=== PATIENT | female | born 1930 | race Caucasian/White ===

== ENCOUNTER 2017-07-10 19:48 | Inpatient (IN) | payer MEDICARE ==
[~2017-07-10 19:48] MED LIST: APIX5TAB PO; CIPR-9 PO; CLON1TAB PO; DIGO0.25 PO; FERR325T20 PO; FURO20TA PO; FURO40TA PO; LOSA50TA PO; METO25TA3 PO; NON-325T2 PO; ROSU1TAB10 PO; SERT-129 PO; TRAM50 PO; TRAM50TA PO
[2017-07-10 23:00] VITALS: BP 118/80; PULSE 80; RESP 18; TEMP 98.4; O2SAT 95
[2017-07-11] VITALS (20 sets, daily range): BP systolic 87–122; BP diastolic 42–63; PULSE 54–96; RESP 16–20; TEMP 97.9–98.8; O2SAT 94–100
[2017-07-11] MEDS ORDERED: MAGNESIUM HYDROXIDE SUSP 30 ML CUP PO PRN (00:15)
[2017-07-11] MEDS ORDERED: RESP: ALBUTEROL 2.5 MG/IPRATROPIUM 0.5 MG NEB (PRN) NEB (00:15)
[2017-07-11] MEDS ORDERED: clonazePAM 1 MG TAB PO PRN (00:15)
[2017-07-11] MEDS ORDERED: NALOXONE HCL 0.4 MG/ML AMP IV PUSH PRN (00:15)
[2017-07-11] MEDS ORDERED: ACETAMINOPHEN 325 MG TAB PO PRN (00:15)
[2017-07-11] MEDS ORDERED: SODIUM CHLORIDE 0.9% FLUSH 10 ML FLUSH IV FLUSH PRN (00:15)
[2017-07-11] MEDS ORDERED: SENNOSIDES 8.6 MG TAB PO PRN (00:15)
[2017-07-11] MEDS ORDERED: traMADol HCL 50 MG TAB PO PRN (00:15)
[2017-07-11] MEDS ORDERED: CALCIUM CARBONATE 500 MG CHEWABLE TAB CHEW ONE (01:45)
--- NOTE | 2017-07-11 04:48 | HHI.HP ---
HPI Service [facility] Hospitalists Primary Care Physician Unknown Admission Diagnosis CHF . Diagnoses: (1) Atrial fibrillation (2) CHF (congestive heart failure) Chief Complaint: Shortness of breath Travel History International Travel<30 Days: No Contact w/Intl Traveler <30 Da: No History of Present Illness Mrs. 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 She was transferred to [facility] on 07/10/2017 for CHF exacerbation under the care of the hospitalist service. The patient is seen in her hospital room. She is pleasant but complaining of a dry throat. She reports she was getting short of breath and had a congested cough that got progressively worse over the last couple of days. She reports a history of congestive heart failure. She denies any associated chest pain, peripheral edema, nausea, vomiting, or diarrhea. She denies any recent fever or chills. Chest x-ray done at [facility] showed improved aeration of the lungs when compared to 09/08/2017. Residual infiltrate was noted in the medial left lower lung and probable small left pleural effusion. The patient's BNP increased from 2825 to 3040. Troponin I was 0.10 and then 0.11; possibly secondary to chronic renal insufficiency. Dr. Rea of cardiology service placed orders for the patient to be nothing by mouth after midnight with p.o. medications and daytime rounding physician for the hospitalist service placed orders for Lasix IV, DuoNeb nebulizer, and Solu-Medrol 125 mg IV. The patient reports improvement in symptoms. she is also being treated with ciprofloxacin p.o. for UTI - proteus mirabilis 07/04/16. She has completed 3.5 days of Cipro. Review of Systems Except as stated in HPI: all other systems reviewed are Neg Past Family Social History Past Medical History Recent Right MCA CVA s/p TPA and embolectomy Hypertension Cardiomyopathy Atrial fibrillation with RVR, new onset Mild dementia Anemia . Past Surgical History Cataract surgery Appendectomy Tonsillectomy . Reported Medications Reported Meds & Active Scripts Active Furosemide 20 Mg Tab 20 Mg PO BID@ Ultram (Tramadol HCl) 50 Mg Tab 50 Mg PO Q6H PRN Metoprolol Tartrate 25 Mg Tab 25 Mg PO Q12HR Ferosul (Ferrous Sulfate) 325 Mg (65 Mg Iron) Tablet 325 Mg PO BID Cipro (Ciprofloxacin HCl) 500 Mg Tab 500 Mg PO Q12HR 2 Days Reported Rosuvastatin (Rosuvastatin Calcium) 40 Mg Tab 40 Mg PO DAILY Eliquis (Apixaban) 5 Mg Tab 5 Mg PO BID Non-Aspirin (Acetaminophen) 325 Mg Tab 650 Mg PO Q4HR PRN Sertraline (Sertraline HCl) 100 Mg Tab 100 Mg PO DAILY Losartan (Losartan Potassium) 50 Mg Tab 50 Mg PO DAILY Clonazepam 1 Mg Tab 1 Mg PO TID PRN . Allergies: Coded Allergies: No Known Allergies (Verified Allergy, Unknown, 07/03/17) Family History Father, age 70, stroke Mother, age 93, dementia . Social History Tobacco: Denies Alcohol: Denies Illicit Drugs: Denies She is and lives with her who suffers from Alzheimer's . Physical Exam Vital Signs Vital Signs Date Time Temp Pulse Resp B/P (MAP) Pulse Ox O2 Delivery O2 Flow Rate FiO2 07/11/17 04:00 75 07/11/17 03:30 98.8 76 18 117/63 (81) 96 07/11/17 03:00 65 07/11/17 02:00 71 07/11/17 01:00 78 07/11/17 00:00 66 07/10/17 23:00 80 07/10/17 23:00 98.4 80 18 118/80 (93) 95 Physical Exam Constitutional: This is a well nourished elderly female patient, in no apparent distress. Integumentary: No rashes. Cool and dry. HEAD: Atraumatic. Normocephalic. EYES: No scleral icterus. No injection or drainage. ENT: Nose without bleeding, purulent drainage. NECK: Trachea midline. No JVD. CARDIOVASCULAR: Irregularly irregular with II/ systolic murmur auscultated throughout precordium. RESPIRATORY: Breath sounds equal bilaterally, diminished at bilateral bases. No wheezes, rales, or rhonchi. Congested cough. GASTROINTESTINAL: Abdomen soft, non-tender, nondistended. No guarding. MUSCULOSKELETAL: Extremities without clubbing, cyanosis, or edema. No calf tenderness. NEUROLOGICAL: Awake and alert. Motor and sensory grossly within normal limits. Normal speech. Appears to have some mild cognitive impairment in terms of recall. PSYCHIATRIC: No overt signs of anxiety or depression. . Caprini VTE Risk Assessment Caprini VTE Risk Assessment: Mod/High Risk (score >= 2) Caprini Risk Assessment Model Point Value = 1 Point Value = 2 Point Value = 3 Point Value = 5 Age 41-60 Minor surgery BMI > 25 kg/m2 Swollen legs Varicose veins or History of unexplained or recurrent spontaneous Oral contraceptives or hormone replacement Sepsis (< 1 month) Serious lung disease, including pneumonia (< 1 month) Abnormal pulmonary function Acute myocardial infarction Congestive heart failure (< 1 month) History of inflammatory bowel disease Medical patient at bed rest Age 61-74 Arthroscopic surgery Major open surgery (> 45 min) Laparoscopic surgery (> 45 min) Malignancy Confined to bed (> 72 hours) Immobilizing plaster cast Central venous access Age >= 75 History of VTE Family history of VTE Factor V Leiden Prothrombin [id number] Lupus anticoagulant Anticardiolipin antibodies Elevated serum homocysteine Heparin-induced thrombocytopenia Other congenital or acquired thrombophilia Stroke (< 1 month) Elective arthroplasty Hip, pelvis, or leg fracture Acute spinal cord injury (< 1 month) Prophylaxis Regimen Total Risk Factor Score Risk Level Prophylaxis Regimen 0-1 Low Early ambulation 2 Moderate Order ONE of the following: *Sequential Compression Device (SCD) *Heparin 5000 units SQ BID 3-4 Higher Order ONE of the following medications: *Heparin 5000 units SQ TID *Enoxaparin/Lovenox 40 mg SQ daily (WT < 150 kg, CrCl > 30 mL/min) *Enoxaparin/Lovenox 30 mg SQ daily (WT < 150 kg, CrCl > 10-29 mL/min) *Enoxaparin/Lovenox 30 mg SQ BID (WT < 150 kg, CrCl > 30 mL/min) AND/OR *Sequential Compression Device (SCD) 5 or more Highest Order ONE of the following medications: *Heparin 5000 units SQ TID (Preferred with Epidurals) *Enoxaparin/Lovenox 40 mg SQ daily (WT < 150 kg, CrCl > 30 mL/min) *Enoxaparin/Lovenox 30 mg SQ daily (WT < 150 kg, CrCl > 10-29 mL/min) *Enoxaparin/Lovenox 30 mg SQ BID (WT < 150 kg, CrCl > 30 mL/min) AND *Sequential Compression Device (SCD) Assessment and Plan Problem List: (1) CHF (congestive heart failure) ICD Code: I50.9 - Heart failure, unspecified (2) Atrial fibrillation ICD Code: I48.91 - Unspecified atrial fibrillation Status: Acute Assessment and Plan Mrs. 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 She was transferred to [facility] on 07/10/2017 for CHF exacerbation under the care of the hospitalist service. CHF - Lasix 20 mg IV push twice a day - Consult cardiology - Echocardiogram 07/07/2017 showed hyperdynamic left ventricular systolic function with estimated EF of 65-70%; normal left ventricular size; severe concentric left ventricular hypertrophy; left atrium severely dilated; aortic valve sclerosis was present, mild aortic valve stenosis noted, aortic valve mean gradient suggestive of hypertrophic obstructive cardiomyopathy - NPO with p.o. meds per Dr. Rea - Monitor intake and output Atrial fibrillation - Continuous cardiac telemetry to monitor arrhythmia and heart rate - Continue Eliquis - Continue metoprolol - Continue digoxin UTI - culture + for Proteus mirabilis - Cipro discontinued - Vanc/Zosyn IV started - will cover both pneumonia and UTI Left lower lobe pneumonia - Vanc/Zosyn IV - Duonebulizers PRN - supplemental oxygen to maintain oxygen saturation > 92% DVT prophylaxis - Eliquis 5 mg BID p.o. . Discussed Condition With Patient and Dr. Shannon . Physician Certification 2 Midnight Certification Type: Admission for Inpatient Services Order for Inpatient Services The services are ordered in accordance with Medicare regulations or non- Medicare payer requirements, as applicable. In the case of services not specified as inpatient-only, they are appropriately provided as inpatient services in accordance with the 2-midnight benchmark. Estimated LOS (days): 3 days is the estimated time the patient will need to remain in the hospital, assuming treatment plan goals are met and no additional complications. Post-Hospital Plan: Not yet determined Taylor Mcintyre Jul 11, 2017 04:48
[2017-07-11] MEDS ORDERED: Vancomycin Consult Pharmacy 1 EA OTHER SCH (05:45)
[2017-07-11] MEDS ORDERED: CIPROFLOXACIN 500 MG TAB PO SCH ×2 (06:00→09:00)
[2017-07-11] MEDS: PIPERACIL-TAZO 4.5 GM PREMIX 100 ML IV SCH ×4 (06:14→23:49)
[2017-07-11 07:00] LABS: ALBUMIN 3.3 GM/DL (3.4-5.0); AST (GOT) 17 U/L (15-37); BICARBONATE 32.7 MEQ/L (21.0-32.0); BLOOD UREA NITROGEN 33 MG/DL (7-18); CALCIUM 9.1 MG/DL (8.5-10.1); CHLORIDE 101 MEQ/L (98-107); CREATININE 1.02 MG/DL (0.50-1.00); GLOMERULAR FILTRATION RATE 52 ML/MIN (>89); GLUCOSE,RANDOM 146 MG/DL (74-106); SODIUM (NA) 141 MEQ/L (136-145)
[2017-07-11 07:14] LABS: ALKALINE PHOSPHATASE 86 U/L (45-117); ALT (GPT) 17 U/L (10-53); DIGOXIN 1.3 NG/ML (0.8-2.0); TOTAL PROTEIN 6.6 GM/DL (6.4-8.2)
--- NOTE | 2017-07-11 08:02 | PD.CARD.PN ---
Subjective Subjective Remarks Vague historian. Substernal CP last night, may have lasted 10-20 minutes, "heartburn" sensation, no dyspnea/nausea/diaphoresis. No CP since. No dizziness, palpitations. Objective Medications Item Value Date Time Metoprolol 25 mg 07/11/17 0900 Tartrate Q12HR/PO (Lopressor) Furosemide 20 mg 07/11/17 0900 (Lasix Inj) BID@/IV PUSH Potassium Chloride 10 meq 07/11/1700 (KCl) Q12HR/PO Digoxin 0.25 mg 07/11/1700 (Lanoxin) DAILY/PO Losartan Potassium 50 mg 07/11/17899 (Cozaar) DAILY/PO Atorvastatin 80 mg 07/11/1700 Calcium DAILY/PO (Lipitor) Apixaban 5 mg 07/11/1700 (Eliquis) BID/PO Current Medications Medications (Trade) Dose Ordered Sig/Melany Route Start Time Stop Time Status Last Admin (Lopressor) 25 mg Q12HR PO 07/11/17 09:00 (Duoneb Neb) 1 ampule Q4HR NEB PRN NEB 07/11/17 00:15 (Lasix Inj) 20 mg BID@ IV PUSH 07/11/17 09:00 (KCl) 10 meq Q12HR PO 07/11/17 09:00 (Ferrous Sulfate) 325 mg BID PO 07/11/17 09:00 (Lanoxin) 0.25 mg DAILY PO 07/11/17 09:00 (Cozaar) 50 mg DAILY PO 07/11/17 09:00 (Zoloft) 100 mg DAILY PO 07/11/17 09:00 (Lipitor) 80 mg DAILY PO 07/11/17 09:00 (Ramona-Colace) 1 tab BID PO 07/11/17 09:00 (Eliquis) 5 mg BID PO 07/11/17 09:00 (KlonoPIN) 1 mg Q8HR PRN PO 07/11/17 00:15 (Ultram) 50 mg Q6H PRN PO 07/11/17 00:15 (Tylenol) 650 mg Q4H PRN PO 07/11/17 00:15 (Senokot) 17.2 mg Q12HR PRN PO 07/11/17 00:15 (Milk Of Magnesia Liq) 30 ml DAILY PRN PO 07/11/17 00:15 (NS Flush) 2 ml UNSCH PRN IV FLUSH 07/11/17 00:15 (NS Flush) 2 ml BID IV FLUSH 07/11/17 09:00 (Narcan Inj) 0.4 mg UNSCH PRN IV PUSH 07/11/17 00:15 Pharmacy Profile Note 0 ml @ 0 mls/hr UNSCH OTHER 07/11/17 05:45 Piperacillin Sod/ Tazobactam Sod 100 ml @ 200 mls/hr Q6H IV 07/11/17 06:00 07/11/17 06:14 Vital Signs / I&O Vital Signs Date Time Temp Pulse Resp B/P (MAP) Pulse Ox O2 Delivery O2 Flow Rate FiO2 07/11/17 06:00 74 07/11/17 05:00 70 07/11/17 04:00 75 07/11/17 03:30 98.8 76 18 117/63 (81) 96 07/11/17 03:00 65 07/11/17 02:00 71 07/11/17 01:00 78 07/11/17 00:00 66 07/10/17 23:00 80 07/10/17 23:00 98.4 80 18 118/80 (93) 95 I/O 07/10/17 07/10/17 07/10/17 07/11/17 07/11/17 07/11/17 07:00 15:00 23:00 07:00 15:00 23:00 Intake Total 240 ml Output Total 550 ml Balance -310 ml Intake Oral 240 ml Output Urine Total 550 ml # Bowel Movements 0 Physical Exam GENERAL: Well developed, well nourished. No acute distress. HEENT: Jugular venous pressure 8 cm water. CHEST: Diminished breath sounds bases. CARDIAC: Irregular rate and rhythm without S3, S4. II-III/ diffuse systolic murmur, no change with Valsalva. ABDOMEN: Soft, nontender, no hepatosplenomegaly. Bowel sounds present. EXTREMITIES: No clubbing, cyanosis, or edema. Laboratory Laboratory Tests Test 07/11/17 05:20 Blood Urea Nitrogen 33 MG/DL Creatinine 1.02 MG/DL Random Glucose 146 MG/DL Total Protein 6.6 GM/DL Albumin 3.3 GM/DL Calcium Level 9.1 MG/DL Alkaline Phosphatase 86 U/L Aspartate Amino Transf (AST/SGOT) 17 U/L Alanine Aminotransferase (ALT/SGPT) 17 U/L Total Bilirubin 1.0 MG/DL Sodium Level 141 MEQ/L Potassium Level 3.3 MEQ/L Chloride Level 101 MEQ/L Carbon Dioxide Level 32.7 MEQ/L Anion Gap 7 MEQ/L Estimat Glomerular Filtration Rate 52 ML/MIN Digoxin Level 1.3 NG/ML Assessment and Plan Problem List: (1) Chest pain ICD Codes: R07.9 - Chest pain, unspecified Status: Acute Plan: Atypical chest discomfort last night, EKG changed from prior. No further chest discomfort. Rec Lexiscan nuclear stress test this morning. (2) CHF (congestive heart failure) ICD Codes: I50.9 - Heart failure, unspecified Status: Acute Plan: Overall improved with diuresis. Suspect CHF on basis of diastolic dysfunction with superimposed atrial fibrillation and loss of atrial contribution to LV filling. Rec continue beta lauren, IV Lasix diuresis. (3) Hypertrophic obstructive cardiomyopathy ICD Codes: I42.1 - Obstructive hypertrophic cardiomyopathy Status: Chronic Plan: Echo shows diffuse hypertrophy, most prominent in basal septum with mild obstruction to left ventricular outflow. Rec continue beta lauren therapy. (4) Paroxysmal atrial fibrillation ICD Codes: I48.0 - Paroxysmal atrial fibrillation Status: Acute Plan: Remains in atrial fib, controlled HR's. Continue current regimen, including apixaban. (5) Hypertension, essential ICD Codes: I10 - Essential (primary) hypertension Status: Chronic Plan: Stable. Normotensive. Code Status full code Discussed Condition With patient Problem Qualifiers (1) Chest pain: Qualified Codes: R07.9 - Chest pain, unspecified (2) CHF (congestive heart failure): Qualified Codes: I50.31 - Acute diastolic (congestive) heart failure Isaiah Rea MD Jul 11, 2017 08:02
[2017-07-11] MEDS: APIXABAN 5 MG TABLET PO SCH ×2 (08:39→21:45)
[2017-07-11] MEDS: LOSARTAN 50 MG TAB PO SCH (08:39)
[2017-07-11] MEDS: ATORVASTATIN 80 MG TAB PO SCH (08:39)
[2017-07-11] MEDS: FERROUS SULFATE 325 MG (65 MG ELEMENTAL IRON) TAB PO SCH ×2 (08:39→21:45)
[2017-07-11] MEDS: DOCUSATE SODIUM 50 MG/SENNA 8.6 MG TAB PO SCH ×2 (08:39→21:45)
[2017-07-11] MEDS: SERTRALINE HCL 100 MG TAB PO SCH (08:39)
[2017-07-11] MEDS: METOPROLOL TARTRATE 25 MG TAB PO SCH ×2 (08:39→21:00)
[2017-07-11] MEDS: POTASSIUM CHLORIDE 10 MEQ CONTROLLED RELEASE TAB PO SCH ×2 (08:39→21:45)
[2017-07-11] MEDS: SODIUM CHLORIDE 0.9% FLUSH 10 ML FLUSH IV FLUSH SCH ×2 (08:40→21:45)
[2017-07-11] MEDS: FUROSEMIDE 20 MG/2 ML VIAL IV PUSH SCH ×2 (08:40→16:56)
[2017-07-11] MEDS ORDERED: DIGOXIN 0.25 MG TAB PO SCH (09:00)
[2017-07-11] MEDS ORDERED: VANCOMYCIN INJ 1,250 MG in SODIUM CHLOR 0.9% 250 ML INJ 250 ML IV SCH (10:00)
[2017-07-11] MEDS ORDERED: REGADENOSON INJ 0.4 MG/5 ML SYR ONE (12:37)
--- NOTE | 2017-07-11 13:41 | RADRPT ---
EXAM DATE/TIME: 07/11/2017 11:50 [place] COMPARISON: No previous studies available for comparison. INDICATIONS : Substernal chest pain. Chest pain on Digoxin. Atrial fibrillation. DOSE: 25.9 mCi Tc99m Myoview at stress. 8.1 mCi Tc99m Myoview at rest. 0.4 mg Lexiscan STRESS SYMPTOMS: None. EJECTION FRACTION: 69% MEDICAL HISTORY : Congestive hearrt failure. Hypertension. SURGICAL HISTORY : Tubal ligation. ENCOUNTER: Initial ACUITY: 3 days PAIN SCALE: 4/10 LOCATION: Substernal chest TECHNIQUE: The patient underwent pharmacologic stress with infusion of prescribed dose. Continuous ECG tracing was monitored during stress. Gated SPECT imaging was performed after stress and conventional SPECT i maging was performed at rest. The examination was performed on a SPECT/CT scanner, both attenuation and non-corrected datasets were reviewed. FINDINGS: DISTRIBUTION: The maximum perfused segment at stress is in the septal wall. PERFUSION STUDY: The pattern of perfusion at stress is within normal limits. GATED STUDY: There is intact wall motion and thickening without hypokinetic or dyskinetic segments. CONCLUSION: Unremarkable myocardial perfusion examination. RISK CATEGORY: Low Seth Liao MD on July 11, 2017 at 13:38 Board Certified Radiologist. This report was verified electronically.
--- NOTE | 2017-07-11 14:17 | HHI.PR ---
Subjective Remarks Follow-up for shortness of breathing Patient stated that she feels short of breath. She denies any worsening of symptoms. Positive for nonproductive cough. She has no other complaints. She did have questions on when she can be discharged. Objective Vitals Vital Signs Date Time Temp Pulse Resp B/P (MAP) Pulse Ox O2 Delivery O2 Flow Rate FiO2 07/11/17 11:15 20 07/11/17 08:00 98.6 96 16 122/60 (80) 94 07/11/17 06:00 74 07/11/17 05:00 70 07/11/17 04:00 75 07/11/17 03:30 98.8 76 18 117/63 (81) 96 07/11/17 03:00 65 07/11/17 02:00 71 07/11/17 01:00 78 07/11/17 00:00 66 07/10/17 23:00 80 07/10/17 23:00 98.4 80 18 118/80 (93) 95 I/O 07/10/17 07/10/17 07/10/17 07/11/17 07/11/17 07/11/17 07:00 15:00 23:00 07:00 15:00 23:00 Intake Total 240 ml Output Total 550 ml Balance -310 ml Intake Oral 240 ml Output Urine Total 550 ml # Bowel Movements 0 Result Diagram: 07/11/17 0520 Objective Remarks GENERAL: in NAD CARDIOVASCULAR: Regular rate and rhythm without murmurs, gallops, or rubs. RESPIRATORY: Mild bibasilar crackles. No accessory muscle use. GASTROINTESTINAL: Abdomen soft, non-tender, nondistended. MUSCULOSKELETAL: No cyanosis, or edema. BACK: Nontender without obvious deformity. No CVA tenderness. Medications and IVs Current Medications Metoprolol Tartrate (Lopressor) 25 mg Q12HR PO Last administered on 07/11/17at 08 :39; Start 07/11/17 at 09:00 Albuterol/ Ipratropium (Duoneb Neb) 1 ampule Q4HR NEB PRN NEB SOB/WHEEZING; Start 07/11/17 at 00:15 Furosemide (Lasix Inj) 20 mg BID@,18 IV PUSH Last administered on 07/11/17at 08 :40; Start 07/11/17 at 09:00 Potassium Chloride (KCl) 10 meq Q12HR PO Last administered on 07/11/17 08:39; Start 07/11/17 at 09:00 Ferrous Sulfate (Ferrous Sulfate) 325 mg BID PO Last administered on 07/11/17 08:39; Start 07/11/17 at 09:00 Ciprofloxacin (Cipro) 500 mg Q12HR PO ; Start 07/11/17 at 09:00; Stop 07/11/17 at 09:00; Status DC Digoxin (Lanoxin) 0.25 mg DAILY PO Last administered on 07/11/17 08:39; Start 07/11/17 at 09:00 Losartan Potassium (Cozaar) 50 mg DAILY PO Last administered on 07/11/17 08:39 ; Start 07/11/17 at 09:00 Sertraline HCl (Zoloft) 100 mg DAILY PO Last administered on 07/11/17 08:39; Start 07/11/17 at 09:00 Atorvastatin Calcium (Lipitor) 80 mg DAILY PO Last administered on 07/11/17 08: 39; Start 07/11/17 at 09:00 Senna/Docusate Sodium (Ramona-Colace) 1 tab BID PO Last administered on 07/11/17 08:39; Start 07/11/17 at 09:00 Apixaban (Eliquis) 5 mg BID PO Last administered on 07/11/17 08:39; Start at 09:00 Clonazepam (KlonoPIN) 1 mg Q8HR PRN PO MODERATE TO SEVERE ANXIETY; Start at 00:15 Tramadol HCl (Ultram) 50 mg Q6H PRN PO pain > 5; Start 07/11/17 at 00:15 Acetaminophen (Tylenol) 650 mg Q4H PRN PO fever > 100.4/pain 1 - 5 Last administered on 07/11/17at 10:03; Start 07/11/17 at 00:15 Sennosides (Senokot) 17.2 mg Q12HR PRN PO moderate constipation; Start 07/11/17 at 00:15 Magnesium Hydroxide (Milk Of Magnesia Liq) 30 ml DAILY PRN PO mild constipation ; Start 07/11/17 at 00:15 Sodium Chloride (NS Flush) 2 ml UNSCH PRN IV FLUSH FLUSH AFTER USING IV ACCESS ; Start 07/11/17 at 00:15 Sodium Chloride (NS Flush) 2 ml BID IV FLUSH Last administered on 07/11/17at 08: 40; Start 07/11/17 at 09:00 Naloxone HCl (Narcan Inj) 0.4 mg UNSCH PRN IV PUSH SEE LABEL COMMENTS; Start at 00:15 Ciprofloxacin (Cipro) 500 mg Q12H PO ; Start 07/11/17 at 06:00; Stop 07/11/17 at 06:00; Status DC Calcium Carbonate (Tums Chew) 500 mg ONCE ONCE CHEW Last administered on at 01:45; Start 07/11/17 at 01:45; Stop 07/11/17 at 01:47; Status DC Pharmacy Profile Note 0 ml @ 0 mls/hr UNSCH OTHER ; Start 07/11/17 at 05:45 Piperacillin Sod/ Tazobactam Sod 100 ml @ 200 mls/hr Q6H IV Last administered on 07/11/17at 12:00; Start 07/11/17 at 06:00 Vancomycin HCl 1250 mg/Sodium Chloride 262.5 ml @ 250 mls/hr Q24H IV Last administered on 07/11/17at 10:04; Start 07/11/17 at 10:00; Stop 07/11/17 at 10:46; Status DC Vancomycin HCl 1000 mg/Sodium Chloride 250 ml @ 250 mls/hr Q24H IV ; Start 07/12 at 10:00 Miscellaneous Information SPECIFIC LAB TO BE DRAWN:VANCOMYCIN TROUGH DATE TO... ONCE ONCE .XX ; Start 07/14/17 at 09:45; Stop 07/14/17 at 09:46 Regadenoson (Lexiscan Inj) 0.4 mg STK-MED ONCE .ROUTE Last administered on at 12:37; Start 07/11/17 at 12:37; Stop 07/11/17 at 12:38; Status DC A/P Problem List: (1) CHF (congestive heart failure) ICD Code: I50.9 - Heart failure, unspecified Status: Acute (2) Atrial fibrillation ICD Code: I48.91 - Unspecified atrial fibrillation Status: Acute Assessment and Plan Mrs. 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 for inpatient rehabilitation to recover functional abilities on 07/04/2017. She was transferred to [facility] on 07/10/2017 for CHF exacerbation under the care of the hospitalist service. 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 States to continue with IV Lasix. - Echocardiogram 07/07/2017 showed hyperdynamic left ventricular systolic function with estimated EF of 65-70%; normal left ventricular size; severe concentric left ventricular hypertrophy; left atrium severely dilated; aortic valve sclerosis was present, mild aortic valve stenosis noted, aortic valve mean gradient suggestive of hypertrophic obstructive cardiomyopathy -Nuclear stress test unremarkable. Atrial fibrillation -Continue with metoprolol, Eliquis and digoxin. UTI - culture + for Proteus mirabilis - Cipro discontinued - Vanc/Zosyn IV started - will cover both pneumonia and UTI Left lower lobe pneumonia - Vanc/Zosyn IV - Duonebulizers PRN - supplemental oxygen to maintain oxygen saturation > 92% -If symptoms improve tomorrow can consider switching to oral medication. -Patient has a dry cough so unable to get any sputum cultures. DVT prophylaxis - Eliquis 5 mg BID p.o. Discharge Planning Awaiting clinical improvement before discharge. Patient continues to be on IV antibiotics and IV Lasix. Problem Qualifiers (1) CHF (congestive heart failure): Qualified Codes: I50.31 - Acute diastolic (congestive) heart failure Randa Haynes MD Jul 11, 2017 14:17
[2017-07-11] MEDS ORDERED: SODIUM CHLOR 0.9% 250 ML INJ 250 ML IV ONE (21:30)
[2017-07-12] VITALS (30 sets, daily range): BP systolic 96–145; BP diastolic 43–59; PULSE 51–71; RESP 16; TEMP 97.5–98.3; O2SAT 93–100
[2017-07-12] MEDS: PIPERACIL-TAZO 4.5 GM PREMIX 100 ML IV SCH ×2 (05:42→12:39)
[2017-07-12 06:33] LABS: HEMATOCRIT 31.2 % (35.0-46.0); MEAN CELL VOLUME 85.5 FL (80.0-100.0); MEAN CORPUSCULAR HEMOGLOBIN 27.5 PG (27.0-34.0); MEAN CORPUSCULAR HGB CONC 32.2 % (32.0-36.0); MEAN PLATELET VOLUME 8.2 FL (7.0-11.0); PLATELET COUNT 261 TH/MM3 (150-450); RED BLOOD COUNT 3.65 MIL/MM3 (4.00-5.30); RED CELL DISTRIBUTION WIDTH 17.4 % (11.6-17.2); WHITE BLOOD COUNT 11.7 TH/MM3 (4.0-11.0)
[2017-07-12 06:53] LABS: BICARBONATE 32.8 MEQ/L (21.0-32.0); CALCIUM 8.5 MG/DL (8.5-10.1); CREATININE 1.31 MG/DL (0.50-1.00)
--- NOTE | 2017-07-12 08:29 | PD.CARD.PN ---
Subjective Subjective Remarks Mild heartburn this morning. Mildly dyspneic at rest. No PND. No dizziness, palpitations. Objective Medications Item Value Date Time Metoprolol 25 mg 07/11/17 0900 Tartrate Q12HR/PO (Lopressor) Furosemide 20 mg 07/11/17 0900 (Lasix Inj) BID@/IV PUSH Potassium Chloride 10 meq 07/11/17 0900 (KCl) Q12HR/PO Digoxin 0.25 mg 07/11/17899 (Lanoxin) DAILY/PO Losartan Potassium 50 mg 07/11/17 0900 (Cozaar) DAILY/PO Atorvastatin 80 mg 07/11/17899 Calcium DAILY/PO (Lipitor) Apixaban 5 mg 07/11/17899 (Eliquis) BID/PO Current Medications Medications (Trade) Dose Ordered Sig/Melany Route Start Time Stop Time Status Last Admin (Lopressor) 25 mg Q12HR PO 07/11/17 09:00 07/11/17 08:39 (Duoneb Neb) 1 ampule Q4HR NEB PRN NEB 07/11/17 00:15 (Lasix Inj) 20 mg BID@ IV PUSH 07/11/17 09:00 07/11/17 08:40 (KCl) 10 meq Q12HR PO 07/11/17 09:00 07/11/17 21:45 (Ferrous Sulfate) 325 mg BID PO 07/11/17 09:00 07/11/17 21:45 (Lanoxin) 0.25 mg DAILY PO 07/11/17 09:00 07/11/17 08:39 (Cozaar) 50 mg DAILY PO 07/11/17 09:00 07/11/17 08:39 (Zoloft) 100 mg DAILY PO 07/11/17 09:00 07/11/17 08:39 (Lipitor) 80 mg DAILY PO 07/11/17 09:00 07/11/17 08:39 (Ramona-Colace) 1 tab BID PO 07/11/17 09:00 07/11/17 21:45 (Eliquis) 5 mg BID PO 07/11/17 09:00 07/11/17 21:45 (KlonoPIN) 1 mg Q8HR PRN PO 07/11/17 00:15 (Ultram) 50 mg Q6H PRN PO 07/11/17 00:15 (Tylenol) 650 mg Q4H PRN PO 07/11/17 00:15 07/11/17 10:03 (Senokot) 17.2 mg Q12HR PRN PO 07/11/17 00:15 (Milk Of Magnesia Liq) 30 ml DAILY PRN PO 07/11/17 00:15 (NS Flush) 2 ml UNSCH PRN IV FLUSH 07/11/17 00:15 (NS Flush) 2 ml BID IV FLUSH 07/11/17 09:00 07/11/17 21:45 (Narcan Inj) 0.4 mg UNSCH PRN IV PUSH 07/11/17 00:15 Pharmacy Profile Note 0 ml @ 0 mls/hr UNSCH OTHER 07/11/17 05:45 Piperacillin Sod/ Tazobactam Sod 100 ml @ 200 mls/hr Q6H IV 07/11/17 06:00 07/12/17 05:42 Vancomycin HCl 1000 mg/Sodium Chloride 250 ml @ 250 mls/hr Q24H IV 07/12/17 10:00 Miscellaneous Information SPECIFIC LAB TO BE DRAWN:VANCOMYCIN TROUGH DATE TO... ONCE ONCE .XX 07/14/17 09:45 07/14/17 09:46 Vital Signs / I&O Vital Signs Date Time Temp Pulse Resp B/P (MAP) Pulse Ox O2 Delivery O2 Flow Rate FiO2 07/12/17 07:45 97.5 68 16 110/50 (70) 98 07/12/17 06:00 57 07/12/17 05:00 65 07/12/17 04:00 62 07/12/17 03:30 98.0 59 16 108/47 (67) 99 07/12/17 03:00 52 07/12/17 02:00 57 07/12/17 01:00 63 07/12/17 00:00 61 07/12/17 00:00 97.7 59 16 120/50 (73) 98 07/11/17 23:00 58 07/11/17 22:30 56 116/62 (80) 07/11/17 22:00 56 07/11/17 21:00 60 07/11/17 20:00 97.9 72 16 95/47 (63) 98 87/42 (57) 07/11/17 20:00 60 07/11/17 19:00 62 07/11/17 18:00 54 07/11/17 17:00 63 07/11/17 16:00 62 07/11/17 16:00 98.8 62 20 89/60 (70) 100 07/11/17 12:00 60 07/11/17 11:15 20 I/O 07/11/17 07/11/17 07/11/17 07/12/17 07/12/17 07/12/17 07:00 15:00 23:00 07:00 15:00 23:00 Intake Total 240 ml 490 ml 460 ml Output Total 550 ml 450 ml 350 ml Balance -310 ml 40 ml 110 ml Intake Oral 240 ml 240 ml 360 ml IV Total 250 ml 100 ml Output Urine Total 550 ml 450 ml 350 ml # Bowel Movements 0 1 Physical Exam GENERAL: Well developed, well nourished. No acute distress. HEENT: Jugular venous pressure 8-9 cm water. CHEST: Diminished breath sounds bases. Few basilar rales. CARDIAC: Irregular rate and rhythm without S3, S4. II-III/ diffuse systolic murmur. ABDOMEN: Soft, nontender, no hepatosplenomegaly. Bowel sounds present. EXTREMITIES: No clubbing, cyanosis, or edema. Laboratory Laboratory Tests Test 07/12/17 05:14 White Blood Count 11.7 TH/MM3 Red Blood Count 3.65 MIL/MM3 Hemoglobin 10.0 GM/DL Hematocrit 31.2 % Mean Corpuscular Volume 85.5 FL Mean Corpuscular Hemoglobin 27.5 PG Mean Corpuscular Hemoglobin Concent 32.2 % Red Cell Distribution Width 17.4 % Platelet Count 261 TH/MM3 Mean Platelet Volume 8.2 FL Blood Urea Nitrogen 37 MG/DL Creatinine 1.31 MG/DL Random Glucose 107 MG/DL Calcium Level 8.5 MG/DL Sodium Level 142 MEQ/L Potassium Level 3.4 MEQ/L Chloride Level 103 MEQ/L Carbon Dioxide Level 32.8 MEQ/L Anion Gap 6 MEQ/L Estimat Glomerular Filtration Rate 39 ML/MIN Assessment and Plan Problem List: (1) CHF (congestive heart failure) ICD Codes: I50.9 - Heart failure, unspecified Status: Acute Plan: Still dyspneic, at rest. Suspect CHF on basis of diastolic dysfunction with superimposed atrial fibrillation and loss of atrial contribution to LV filling. Rec continue beta lauren, increase IV Lasix diuresis. (2) Chest pain ICD Codes: R07.9 - Chest pain, unspecified Status: Acute Plan: Stable overnight. No ischemia seen on nuclear stress testing. (3) Hypertrophic obstructive cardiomyopathy ICD Codes: I42.1 - Obstructive hypertrophic cardiomyopathy Status: Chronic Plan: Echo shows diffuse hypertrophy, most prominent in basal septum with mild obstruction to left ventricular outflow. Rec continue beta lauren therapy. (4) Paroxysmal atrial fibrillation ICD Codes: I48.0 - Paroxysmal atrial fibrillation Status: Acute Plan: Stable. Continue current regimen, including apixaban. Consider stopping digoxin. (5) Hypertension, essential ICD Codes: I10 - Essential (primary) hypertension Status: Chronic Plan: Stable. Normotensive. Code Status full code Discussed Condition With patient Problem Qualifiers (1) CHF (congestive heart failure): Qualified Codes: I50.31 - Acute diastolic (congestive) heart failure (2) Chest pain: Qualified Codes: R07.9 - Chest pain, unspecified Isaiah Rea MD Jul 12, 2017 08:29
[2017-07-12] MEDS: DOCUSATE SODIUM 50 MG/SENNA 8.6 MG TAB PO SCH ×2 (09:23→20:57)
[2017-07-12] MEDS: ATORVASTATIN 80 MG TAB PO SCH (09:23)
[2017-07-12] MEDS: POTASSIUM CHLORIDE 10 MEQ CONTROLLED RELEASE TAB PO SCH ×2 (09:23→20:56)
[2017-07-12] MEDS: FERROUS SULFATE 325 MG (65 MG ELEMENTAL IRON) TAB PO SCH ×2 (09:24→20:56)
[2017-07-12] MEDS: METOPROLOL TARTRATE 25 MG TAB PO SCH ×2 (09:24→20:55)
[2017-07-12] MEDS: FUROSEMIDE 40 MG/4 ML VIAL IV PUSH SCH ×2 (09:24→17:17)
[2017-07-12] MEDS: LOSARTAN 50 MG TAB PO SCH (09:24)
[2017-07-12] MEDS: APIXABAN 5 MG TABLET PO SCH ×2 (09:24→20:56)
[2017-07-12] MEDS: SERTRALINE HCL 100 MG TAB PO SCH (09:24)
[2017-07-12] MEDS: SODIUM CHLORIDE 0.9% FLUSH 10 ML FLUSH IV FLUSH SCH ×2 (09:25→20:56)
[2017-07-12] MEDS ORDERED: VANCOMYCIN 1,000 MG/NS 250 ML IV SCH ×2 (10:00)
--- NOTE | 2017-07-12 14:49 | HHI.PR ---
Subjective Remarks Follow-up for shortness of breathing Patient stated her breathing has improved. She was found off of oxygen. She has no complaints. She feels like she is doing a little better. Denied any chest pain. Objective Vitals Vital Signs Date Time Temp Pulse Resp B/P (MAP) Pulse Ox O2 Delivery O2 Flow Rate FiO2 07/12/17 13:11 64 07/12/17 13:05 60 07/12/17 12:09 63 07/12/17 12:05 98.1 68 16 96/53 (67) 100 07/12/17 12:05 95 Nasal Cannula 2.00 07/12/17 11:03 51 07/12/17 10:00 62 07/12/17 09:00 68 07/12/17 08:56 97 07/12/17 08:06 61 07/12/17 07:45 97.5 68 16 110/50 (70) 98 07/12/17 07:06 63 07/12/17 06:00 57 07/12/17 05:00 65 07/12/17 04:00 62 07/12/17 03:30 98.0 59 16 108/47 (67) 99 07/12/17 03:00 52 07/12/17 02:00 57 07/12/17 01:00 63 07/12/17 00:00 61 07/12/17 00:00 97.7 59 16 120/50 (73) 98 07/11/17 23:00 58 07/11/17 22:30 56 116/62 (80) 07/11/17 22:00 56 07/11/17 21:00 60 07/11/17 20:00 97.9 72 16 95/47 (63) 98 87/42 (57) 07/11/17 20:00 60 07/11/17 19:00 62 07/11/17 18:00 54 07/11/17 17:00 63 07/11/17 16:00 62 07/11/17 16:00 98.8 62 20 89/60 (70) 100 I/O 07/11/17 07/11/17 07/11/17 07/12/17 07/12/17 07/12/17 07:00 15:00 23:00 07:00 15:00 23:00 Intake Total 240 ml 490 ml 460 ml Output Total 550 ml 450 ml 350 ml Balance -310 ml 40 ml 110 ml Intake Oral 240 ml 240 ml 360 ml IV Total 250 ml 100 ml Output Urine Total 550 ml 450 ml 350 ml # Bowel Movements 0 1 Result Diagram: 07/12/1751307/12/17513 Objective Remarks GENERAL: in NAD CARDIOVASCULAR: Regular rate and rhythm without murmurs, gallops, or rubs. RESPIRATORY: Mild bibasilar crackles. No accessory muscle use. GASTROINTESTINAL: Abdomen soft, non-tender, nondistended. MUSCULOSKELETAL: No cyanosis, or edema. BACK: Nontender without obvious deformity. No CVA tenderness. Medications and IVs Current Medications Metoprolol Tartrate (Lopressor) 25 mg Q12HR PO Last administered on 07/12/17 09 :24; Start 07/11/17 at 09:00 Albuterol/ Ipratropium (Duoneb Neb) 1 ampule Q4HR NEB PRN NEB SOB/WHEEZING; Start 07/11/17 at 00:15 Furosemide (Lasix Inj) 20 mg BID@18 IV PUSH Last administered on 07/11/17at 08 :40; Start 07/11/17 at 09:00; Stop 07/12/17 at 08:31; Status DC Potassium Chloride (KCl) 10 meq Q12HR PO Last administered on 07/12/17at 09:23; Start 07/11/17 at 09:00 Ferrous Sulfate (Ferrous Sulfate) 325 mg BID PO Last administered on 07/12/17at 09:24; Start 07/11/17 at 09:00 Ciprofloxacin (Cipro) 500 mg Q12HR PO ; Start 07/11/17 at 09:00; Stop 07/11/17 at 09:00; Status DC Digoxin (Lanoxin) 0.25 mg DAILY PO Last administered on 07/11/17at 08:39; Start 07/11/17 at 09:00; Stop 07/12/17 at 08:31; Status DC Losartan Potassium (Cozaar) 50 mg DAILY PO Last administered on 07/12/17at 09:24 ; Start 07/11/17 at 09:00 Sertraline HCl (Zoloft) 100 mg DAILY PO Last administered on 07/12/17at 09:24; Start 07/11/17 at 09:00 Atorvastatin Calcium (Lipitor) 80 mg DAILY PO Last administered on 07/12/17 09: 23; Start 07/11/17 at 09:00 Senna/Docusate Sodium (Ramona-Colace) 1 tab BID PO Last administered on 07/12/17 09:23; Start 07/11/17 at 09:00 Apixaban (Eliquis) 5 mg BID PO Last administered on 07/12/17 09:24; Start at 09:00 Clonazepam (KlonoPIN) 1 mg Q8HR PRN PO MODERATE TO SEVERE ANXIETY; Start at 00:15 Tramadol HCl (Ultram) 50 mg Q6H PRN PO pain > 5; Start 07/11/17 at 00:15 Acetaminophen (Tylenol) 650 mg Q4H PRN PO fever > 100.4/pain 1 - 5 Last administered on 07/11/17at 10:03; Start 07/11/17 at 00:15 Sennosides (Senokot) 17.2 mg Q12HR PRN PO moderate constipation; Start 07/11/17 at 00:15 Magnesium Hydroxide (Milk Of Magnesia Liq) 30 ml DAILY PRN PO mild constipation ; Start 07/11/17 at 00:15 Sodium Chloride (NS Flush) 2 ml UNSCH PRN IV FLUSH FLUSH AFTER USING IV ACCESS ; Start 07/11/17 at 00:15 Sodium Chloride (NS Flush) 2 ml BID IV FLUSH Last administered on 07/12/17at 09: 25; Start 07/11/17 at 09:00 Naloxone HCl (Narcan Inj) 0.4 mg UNSCH PRN IV PUSH SEE LABEL COMMENTS; Start at 00:15 Ciprofloxacin (Cipro) 500 mg Q12H PO ; Start 07/11/17 at 06:00; Stop 07/11/17 at 06:00; Status DC Calcium Carbonate (Tums Chew) 500 mg ONCE ONCE CHEW Last administered on at 01:45; Start 07/11/17 at 01:45; Stop 07/11/17 at 01:47; Status DC Pharmacy Profile Note 0 ml @ 0 mls/hr UNSCH OTHER ; Start 07/11/17 at 05:45 Piperacillin Sod/ Tazobactam Sod 100 ml @ 200 mls/hr Q6H IV Last administered on 07/12/17at 12:39; Start 07/11/17 at 06:00 Vancomycin HCl 1250 mg/Sodium Chloride 262.5 ml @ 250 mls/hr Q24H IV Last administered on 07/11/17at 10:04; Start 07/11/17 at 10:00; Stop 07/11/17 at 10:46; Status DC Vancomycin HCl 1000 mg/Sodium Chloride 250 ml @ 250 mls/hr Q24H IV Last administered on 07/12/17at 10:00; Start 07/12/17 at 10:00 Miscellaneous Information SPECIFIC LAB TO BE DRAWN:VANCOMYCIN TROUGH DATE TO... ONCE ONCE .XX ; Start 07/14/17 at 09:45; Stop 07/14/17 at 09:46 Regadenoson (Lexiscan Inj) 0.4 mg STK-MED ONCE .ROUTE Last administered on at 12:37; Start 07/11/17 at 12:37; Stop 07/11/17 at 12:38; Status DC Sodium Chloride 250 ml @ 250 mls/hr BOLUS ONCE IV Last administered on at 21:46; Start 07/11/17 at 21:30; Stop 07/11/17 at 22:29; Status DC Furosemide (Lasix Inj) 40 mg BID@09,18 IV PUSH Last administered on 07/12/17at 09 :24; Start 07/12/17 at 09:00 A/P Problem List: (1) CHF (congestive heart failure) ICD Code: I50.9 - Heart failure, unspecified Status: Acute (2) Atrial fibrillation ICD Code: I48.91 - Unspecified atrial fibrillation Status: Acute Assessment and Plan Mrs. 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 for inpatient rehabilitation to recover functional abilities on 07/04/2017. She was transferred to [facility] on 07/10/2017 for CHF exacerbation under the care of the hospitalist service. CHF, exacerbation -Banker Mason consulted and following. - Echocardiogram 07/07/2017 showed hyperdynamic left ventricular systolic function with estimated EF of 65-70%; normal left ventricular size; severe concentric left ventricular hypertrophy; left atrium severely dilated; aortic valve sclerosis was present, mild aortic valve stenosis noted, aortic valve mean gradient suggestive of hypertrophic obstructive cardiomyopathy -Nuclear stress test unremarkable. -IV Lasix was increased by Dr. Rea mig tig welder. Management per mig tig welder. Atrial fibrillation -Continue with metoprolol, Eliquis and digoxin. UTI - culture + for Proteus mirabilis - Cipro discontinued - Vanc/Zosyn IV started - will cover both pneumonia and UTI Left lower lobe pneumonia - Vanc/Zosyn IV - Duonebulizers PRN - supplemental oxygen to maintain oxygen saturation > 92% -Will transition to Levaquin. DVT prophylaxis - Eliquis 5 mg BID p.o. Discharge Planning Awaiting clinical improvement before discharge. IV Lasix increased today. Problem Qualifiers (1) CHF (congestive heart failure): Qualified Codes: I50.31 - Acute diastolic (congestive) heart failure Randa Haynes MD Jul 12, 2017 14:49
[2017-07-12] MEDS ORDERED: LEVOFLOXACIN 500 MG TAB PO SCH (16:00)
[2017-07-13] VITALS (16 sets, daily range): BP systolic 107–115; BP diastolic 48–49; PULSE 54–70; RESP 17–18; TEMP 97.8–98.4; O2SAT 94–100
[2017-07-13 06:21] LABS: HEMATOCRIT 30.4 % (35.0-46.0); HEMOGLOBIN 10.1 GM/DL (11.6-15.3); MEAN CORPUSCULAR HEMOGLOBIN 28.5 PG (27.0-34.0); MEAN CORPUSCULAR HGB CONC 33.2 % (32.0-36.0); PLATELET COUNT 236 TH/MM3 (150-450); RED BLOOD COUNT 3.53 MIL/MM3 (4.00-5.30); RED CELL DISTRIBUTION WIDTH 18.4 % (11.6-17.2); WHITE BLOOD COUNT 11.1 TH/MM3 (4.0-11.0)
[2017-07-13 06:43] LABS: BICARBONATE 31.5 MEQ/L (21.0-32.0); CALCIUM 8.7 MG/DL (8.5-10.1); CREATININE 1.21 MG/DL (0.50-1.00)
[2017-07-13] MEDS: FUROSEMIDE 40 MG/4 ML VIAL IV PUSH SCH (09:42)
[2017-07-13] MEDS: APIXABAN 5 MG TABLET PO SCH (09:43)
[2017-07-13] MEDS: DOCUSATE SODIUM 50 MG/SENNA 8.6 MG TAB PO SCH (09:43)
[2017-07-13] MEDS: LOSARTAN 50 MG TAB PO SCH (09:43)
[2017-07-13] MEDS: POTASSIUM CHLORIDE 10 MEQ CONTROLLED RELEASE TAB PO SCH (09:43)
[2017-07-13] MEDS: METOPROLOL TARTRATE 25 MG TAB PO SCH (09:43)
[2017-07-13] MEDS: ATORVASTATIN 80 MG TAB PO SCH (09:43)
[2017-07-13] MEDS: SERTRALINE HCL 100 MG TAB PO SCH (09:43)
[2017-07-13] MEDS: FERROUS SULFATE 325 MG (65 MG ELEMENTAL IRON) TAB PO SCH (09:43)
[2017-07-13] MEDS: SODIUM CHLORIDE 0.9% FLUSH 10 ML FLUSH IV FLUSH SCH (09:47)
--- NOTE | 2017-07-13 14:17 | HHI.PR ---
Subjective Remarks f/u for CHF exacerbation denied any SOB, CP, palpitations or lightheadedness/dizziness. patient stated she is feeling a lot better. her nurse is at the bedside during the interview. Objective Vitals Vital Signs Date Time Temp Pulse Resp B/P (MAP) Pulse Ox O2 Delivery O2 Flow Rate FiO2 07/13/17 12:33 65 07/13/17 11:11 97.9 64 18 112/48 (69) 96 07/13/17 11:11 96 Room Air 07/13/17 11:00 64 07/13/17 10:00 66 07/13/17 09:09 94 Room Air 07/13/17 09:09 97.8 64 17 107/49 (68) 94 07/13/17 09:00 70 07/13/17 08:00 62 07/13/17 07:00 59 07/13/17 05:31 63 07/13/17 04:03 57 07/13/17 04:00 66 07/13/17 03:47 67 07/13/17 03:21 Nasal Cannula 2.00 07/13/17 03:00 98.4 56 115/49 (71) 100 07/13/17 02:00 64 07/13/17 01:00 64 07/13/17 00:00 54 07/12/17 23:46 Nasal Cannula 2.00 07/12/17 23:00 97.9 61 145/59 (87) 99 07/12/17 23:00 67 07/12/17 22:00 64 07/12/17 21:00 68 07/12/17 20:51 93 07/12/17 20:00 98.0 69 117/52 (73) 98 07/12/17 20:00 Nasal Cannula 2.00 07/12/17 20:00 64 07/12/17 19:00 61 07/12/17 18:09 56 07/12/17 17:23 71 07/12/17 16:51 66 07/12/17 15:23 65 07/12/17 15:22 98.3 65 16 96/43 (60) 94 07/12/17 15:22 94 Nasal Cannula 2.00 I/O 3/7/18 3/7/18 3/7/18 3/8/18 3/8/18 3/8/18 07:00 15:00 23:00 07:00 15:00 23:00 Intake Total 460 ml 480 ml 2 ml Output Total 350 ml 570 ml 800 ml Balance 110 ml -90 ml -798 ml Intake Oral 360 ml 480 ml 2 ml IV Total 100 ml Output Urine Total 350 ml 570 ml 800 ml # Voids 1 1 # Bowel Movements 1 2 Result Diagram: 07/13/1752107/13/17521 Objective Remarks GENERAL: in NAD CARDIOVASCULAR: Regular rate and rhythm without murmurs, gallops, or rubs. RESPIRATORY: Mild bibasilar crackles. No accessory muscle use. GASTROINTESTINAL: Abdomen soft, non-tender, nondistended. MUSCULOSKELETAL: No cyanosis, or edema. BACK: Nontender without obvious deformity. No CVA tenderness. Medications and IVs Current Medications Metoprolol Tartrate (Lopressor) 25 mg Q12HR PO Last administered on 07/13/17 09 :43; Start 07/11/17 at 09:00 Albuterol/ Ipratropium (Duoneb Neb) 1 ampule Q4HR NEB PRN NEB SOB/WHEEZING; Start 07/11/17 at 00:15 Furosemide (Lasix Inj) 20 mg BID@18 IV PUSH Last administered on 07/11/17at 08 :40; Start 07/11/17 at 09:00; Stop 07/12/17 at 08:31; Status DC Potassium Chloride (KCl) 10 meq Q12HR PO Last administered on 07/13/17 09:43; Start 07/11/17 at 09:00 Ferrous Sulfate (Ferrous Sulfate) 325 mg BID PO Last administered on 07/13/17 09:43; Start 07/11/17 at 09:00 Ciprofloxacin (Cipro) 500 mg Q12HR PO ; Start 07/11/17 at 09:00; Stop 07/11/17 at 09:00; Status DC Digoxin (Lanoxin) 0.25 mg DAILY PO Last administered on 07/11/17at 08:39; Start 07/11/17 at 09:00; Stop 07/12/17 at 08:31; Status DC Losartan Potassium (Cozaar) 50 mg DAILY PO Last administered on 07/13/17 09:43 ; Start 07/11/17 at 09:00 Sertraline HCl (Zoloft) 100 mg DAILY PO Last administered on 07/13/17 09:43; Start 07/11/17 at 09:00 Atorvastatin Calcium (Lipitor) 80 mg DAILY PO Last administered on 07/13/17 09: 43; Start 07/11/17 at 09:00 Senna/Docusate Sodium (Ramona-Colace) 1 tab BID PO Last administered on 07/13/17 09:43; Start 07/11/17 at 09:00 Apixaban (Eliquis) 5 mg BID PO Last administered on 07/13/17 09:43; Start at 09:00 Clonazepam (KlonoPIN) 1 mg Q8HR PRN PO MODERATE TO SEVERE ANXIETY; Start at 00:15 Tramadol HCl (Ultram) 50 mg Q6H PRN PO pain > 5; Start 07/11/17 at 00:15 Acetaminophen (Tylenol) 650 mg Q4H PRN PO fever > 100.4/pain 1 - 5 Last administered on 07/11/17at 10:03; Start 07/11/17 at 00:15 Sennosides (Senokot) 17.2 mg Q12HR PRN PO moderate constipation; Start 07/11/17 at 00:15 Magnesium Hydroxide (Milk Of Magnesia Liq) 30 ml DAILY PRN PO mild constipation ; Start 07/11/17 at 00:15 Sodium Chloride (NS Flush) 2 ml UNSCH PRN IV FLUSH FLUSH AFTER USING IV ACCESS ; Start 07/11/17 at 00:15 Sodium Chloride (NS Flush) 2 ml BID IV FLUSH Last administered on 07/13/17at 09: 47; Start 07/11/17 at 09:00 Naloxone HCl (Narcan Inj) 0.4 mg UNSCH PRN IV PUSH SEE LABEL COMMENTS; Start at 00:15 Ciprofloxacin (Cipro) 500 mg Q12H PO ; Start 07/11/17 at 06:00; Stop 07/11/17 at 06:00; Status DC Calcium Carbonate (Tums Chew) 500 mg ONCE ONCE CHEW Last administered on at 01:45; Start 07/11/17 at 01:45; Stop 07/11/17 at 01:47; Status DC Pharmacy Profile Note 0 ml @ 0 mls/hr UNSCH OTHER ; Start 07/11/17 at 05:45; Stop 07/12/17 at 14:50; Status DC Piperacillin Sod/ Tazobactam Sod 100 ml @ 200 mls/hr Q6H IV Last administered on 07/12/17at 12:39; Start 07/11/17 at 06:00; Stop 07/12/17 at 14:50; Status DC Vancomycin HCl 1250 mg/Sodium Chloride 262.5 ml @ 250 mls/hr Q24H IV Last administered on 07/11/17at 10:04; Start 07/11/17 at 10:00; Stop 07/11/17 at 10:46; Status DC Vancomycin HCl 1000 mg/Sodium Chloride 250 ml @ 250 mls/hr Q24H IV Last administered on 07/12/17at 10:00; Start 07/12/17 at 10:00; Stop 07/12/17 at 14:50; Status DC Miscellaneous Information SPECIFIC LAB TO BE DRAWN:VANCOMYCIN TROUGH DATE TO... ONCE ONCE .XX ; Start 07/14/17 at 09:45; Stop 07/14/17 at 09:45; Status DC Regadenoson (Lexiscan Inj) 0.4 mg STK-MED ONCE .ROUTE Last administered on at 12:37; Start 07/11/17 at 12:37; Stop 07/11/17 at 12:38; Status DC Sodium Chloride 250 ml @ 250 mls/hr BOLUS ONCE IV Last administered on at 21:46; Start 07/11/17 at 21:30; Stop 07/11/17 at 22:29; Status DC Furosemide (Lasix Inj) 40 mg BID@,18 IV PUSH Last administered on 07/13/17at 09 :42; Start 07/12/17 at 09:00 Levofloxacin (Levaquin) 500 mg Q24H PO Last administered on 07/12/17at 17:17; Start 07/12/17 at 16:00 A/P Problem List: (1) CHF (congestive heart failure) ICD Code: I50.9 - Heart failure, unspecified Status: Acute (2) Atrial fibrillation ICD Code: I48.91 - Unspecified atrial fibrillation Status: Acute Assessment and Plan Mrs. 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 She was transferred to [facility] on 07/10/2017 for CHF exacerbation under the care of the hospitalist service. CHF, exacerbation -Groundskeeping Maintenance consulted and following. - Echocardiogram 07/07/2017 showed hyperdynamic left ventricular systolic function with estimated EF of 65-70%; normal left ventricular size; severe concentric left ventricular hypertrophy; left atrium severely dilated; aortic valve sclerosis was present, mild aortic valve stenosis noted, aortic valve mean gradient suggestive of hypertrophic obstructive cardiomyopathy -Nuclear stress test unremarkable. -IV Lasix was increased by Dr. Rea fire medic. Management per fire medic. most likely can switch to PO if okay with Dr. Rea. Atrial fibrillation -Continue with metoprolol, Eliquis and digoxin. UTI - culture + for Proteus mirabilis - d/c vanc and zosyn on 07/12 started on oral levaquin and continues to do well. Left lower lobe pneumonia - s/p Vanc/Zosyn IV 07/12 - Duonebulizers PRN - supplemental oxygen to maintain oxygen saturation > 92% -on Levaquin. DVT prophylaxis - Eliquis 5 mg BID p.o. Discharge Planning can d/c to [facility] if okay with Dr. Rea. Problem Qualifiers (1) CHF (congestive heart failure): Qualified Codes: I50.31 - Acute diastolic (congestive) heart failure Randa Haynes MD Jul 13, 2017 14:17
[2017-07-13] MEDS ORDERED: LEVA500T33 PO (15:22)
[2017-07-13] MEDS ORDERED: KLOR10TA PO (15:22)
[2017-07-13] MEDS ORDERED: FURO1TAB60 PO (15:22)
--- NOTE | 2017-07-13 15:23 | HHI.DS ---
Discharge Summary Admission Date Jul 10, 2017 at 22:38 Admitting Diagnosis CHF . (1) CHF (congestive heart failure) ICD Code: I50.9 - Heart failure, unspecified Status: Acute (2) Atrial fibrillation ICD Code: I48.91 - Unspecified atrial fibrillation Status: Acute Brief History - From Admission Mrs. 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 She was transferred to [facility] on 07/10/2017 for CHF exacerbation under the care of the hospitalist service. The patient is seen in her hospital room. She is pleasant but complaining of a dry throat. She reports she was getting short of breath and had a congested cough that got progressively worse over the last couple of days. She reports a history of congestive heart failure. She denies any associated chest pain, peripheral edema, nausea, vomiting, or diarrhea. She denies any recent fever or chills. Chest x-ray done at [facility] showed improved aeration of the lungs when compared to 09/08/2017. Residual infiltrate was noted in the medial left lower lung and probable small left pleural effusion. The patient's BNP increased from 2825 to 3040. Troponin I was 0.10 and then 0.11; possibly secondary to chronic renal insufficiency. Dr. Rea of cardiology service placed orders for the patient to be nothing by mouth after midnight with p.o. medications and daytime rounding physician for the hospitalist service placed orders for Lasix IV, DuoNeb nebulizer, and Solu-Medrol 125 mg IV. The patient reports improvement in symptoms. she is also being treated with ciprofloxacin p.o. for UTI - proteus mirabilis 07/04/16. She has completed 3.5 days of Cipro. CBC/BMP: 07/13/17 0522 07/13/17 0522 Significant Findings Laboratory Tests Test 07/11/17 05:20 07/12/17 05:14 07/13/17 05:22 Blood Urea Nitrogen 33 MG/DL (7-18) 37 MG/DL (7-18) 33 MG/DL (7-18) Creatinine 1.02 MG/DL (0.50-1.00) 1.31 MG/DL (0.50-1.00) 1.21 MG/DL (0.50-1.00) Random Glucose 146 MG/DL (74-106) 107 MG/DL (74-106) Albumin 3.3 GM/DL (3.4-5.0) Potassium Level 3.3 MEQ/L (3.5-5.1) 3.4 MEQ/L (3.5-5.1) 3.4 MEQ/L (3.5-5.1) Carbon Dioxide Level 32.7 MEQ/L (21.0-32.0) 32.8 MEQ/L (21.0-32.0) Estimat Glomerular Filtration Rate 52 ML/MIN (>89) 39 ML/MIN (>89) 42 ML/MIN (>89) White Blood Count 11.7 TH/MM3 (4.0-11.0) 11.1 TH/MM3 (4.0-11.0) Red Blood Count 3.65 MIL/MM3 (4.00-5.30) 3.53 MIL/MM3 (4.00-5.30) Hemoglobin 10.0 GM/DL (11.6-15.3) 10.1 GM/DL (11.6-15.3) Hematocrit 31.2 % (35.0-46.0) 30.4 % (35.0-46.0) Red Cell Distribution Width 17.4 % (11.6-17.2) 18.4 % (11.6-17.2) PE at Discharge GENERAL: in NAD CARDIOVASCULAR: Regular rate and rhythm without murmurs, gallops, or rubs. RESPIRATORY: Mild bibasilar crackles. No accessory muscle use. GASTROINTESTINAL: Abdomen soft, non-tender, nondistended. MUSCULOSKELETAL: No cyanosis, or edema. BACK: Nontender without obvious deformity. No CVA tenderness. Pt Condition on Discharge: Good Discharge Disposition: Rehab Inpatient Discharge Instructions DIET: Follow Instructions for: Heart Healthy Diet Activities you can perform: Regular-No Restrictions Randa Haynes MD Jul 13, 2017 15:23
[2017-07-14] MEDS ORDERED: PHARMACY ORDERED LAB ONE (09:45)
--- NOTE | 2017-07-19 11:13 | PQ ---
Physician Query Response Document PATIENT: ALPHONSO GOODMAN : 1930 ADMIT DATE: 07/10/2017 10:38 PM DISCH DATE: 07/13/2017 4:15 PM RESPONDING PROVIDER #: lvan QUERY TEXT: CDS Clarification Possible Gram-negative Pneumonia in the setting CXR patchy infiltrates treated with antibiotics IV Va ncomycin,IV Zosyn Other explanation of clinical findings. Unable to determine (no explanation for clinical findings). The medical record reflects the following clinical findings, treatment, and risk factors. * Clinical Indicators CXR patchy infiltrates Congested cough w increasing shortness of breath, neutro phils 88% * Risk Factors CHF exacerbation, recent hospitalization * Treatment IV Vancomycin,IV Zosyn duonebulizers, O2 2L The patient's Clinical Indicators include: Please clarify and document your clinical opinion in the progress notes and discharge summary includi ng the definitive and/or presumptive diagnosis (suspected or probable), related to the above clinical findings. Please include clinical findings supporting your diagnosis. Thank you, Billie Rodriguez CDS [id number] Query created by: Billie Rodriguez on 07/19/2017 10:17 AM RESPONSE TEXT: Her symptoms more due to CHF exacerbation. The initially physician treated for possible HCAP but I di d not agree with this diagnosis. Electronically signed by: Randa Haynes 07/19/2017 11:09 AM
[2017-07-20] MEDS ORDERED: COMMODE 3-IN-11 MIS (15:54)
[2017-07-20] MEDS ORDERED: GETGO ROLLING W1 MI1 (15:54)
== END 2017-07-13 16:15 | DRG 292 ==
LOC: HCIS 22:38
PROVIDERS: ADMIT Family Medicine; ATTEND Family Medicine
DX: I11.0 Hypertensive heart disease with heart failure (principal); I50.33 Acute on chronic diastolic (congestive) heart failure; N39.0 Urinary tract infection, site not specified; B96.4 Proteus (mirabilis) (morganii) as the cause of diseases classified elsewhere; F03.90 Unspecified dementia, unspecified severity, without behavioral disturbance, psychotic disturbance, mood disturbance, and anxiety; I42.1 Obstructive hypertrophic cardiomyopathy; I69.30 Unspecified sequelae of cerebral infarction; R07.89 Other chest pain; I48.0 Paroxysmal atrial fibrillation
CPT/HCPCS: 78452; 80048; 80053; 80162; 85027; 93017; A9502; J1940; J2543; J2785; J3370; J7050